=== PATIENT | female | born 1995 | race Caucasian/White ===

== ENCOUNTER 2017-12-16 10:58 | Outpatient (CLI) | payer BC ==
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
== END 2017-12-16 10:59 | disposition home or self-care (01) ==
LOC: SCSRAD 10:58
PROVIDERS: ATTEND Family Medicine
DX: M54.5 Low back pain (principal)
CPT/HCPCS: 72100

== ENCOUNTER 2018-05-11 21:07 | Emergency (ER) | payer BC ==
[2018-05-11] MEDS ORDERED: Ibuprofen 800 MG TAB ONE (22:54)
== END 2018-05-11 22:59 | disposition home or self-care (01) ==
LOC: SCSER 21:07
DX: S61.012A Laceration without foreign body of left thumb without damage to nail, initial encounter (principal); S61.305A Unspecified open wound of left ring finger with damage to nail, initial encounter; W25.XXXA Contact with sharp glass, initial encounter
CPT/HCPCS: 12001